=== PATIENT | male | born 1975 | race Caucasian/White ===

== ENCOUNTER 2016-07-03 09:52 | Emergency (ER) | payer MEDICAID, OTHER ==
[2016-07-03 09:52] VITALS: BMI 20.8
[2016-07-03 10:05] VITALS: TEMP 97.7
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
[2016-07-03 10:53] LABS: AUTOMATED BASOPHIL 0.1 % (0-2); AUTOMATED EOSINOPHIL 0.1 % (0-5); AUTOMATED LYMPH 7.6 % (17-44); AUTOMATED MONOCYTE 7.5 % (3-10); AUTOMATED NEUTROPHIL 84.7 % (45-76); MPV 8.2 fL (7.4-10.4)
[2016-07-03 11:04] LABS: BLOOD UREA NITROGEN 16 MG/DL (9-20); CALCIUM 9.3 MG/DL (8.4-10.2); CALCULATED OSMOLALITY 270 MOs/Kg (270-290); CHLORIDE 104 mEq/L (98-107); ETOH-MGDL < 10 mg/dL; GLUCOSE 95 MG/DL (70-99); SODIUM LEVEL 140 mEq/L (137-146)
[2016-07-03] MEDS ORDERED: HYDROmorphone 1 MG INJECTION IV ONE ×2 (11:22→12:31)
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
[2016-07-03 12:28] VITALS: BP 133/72; PULSE 70
[2016-07-03 13:10] LABS: ALL NEG? NO
[2016-07-03 13:34] LABS: MDMA* NEG (NEGATIVE); METHAMPHETAMINES NEG (NEGATIVE); OXYCODONE *POSITIVE* (NEGATIVE)
== END 2016-07-03 13:10 | disposition home or self-care (01) ==
LOC: ED 09:52
DX: S02.40EA Zygomatic fracture, right side, initial encounter for closed fracture (principal); S02.40CA Maxillary fracture, right side, initial encounter for closed fracture; S00.03XA Contusion of scalp, initial encounter; M24.411 Recurrent dislocation, right shoulder; Y09 Assault by unspecified means; J01.20 Acute ethmoidal sinusitis, unspecified; F19.10 Other psychoactive substance abuse, uncomplicated; F17.200 Nicotine dependence, unspecified, uncomplicated
CPT/HCPCS: 36415; 70450; 70486; 71010; 72125; 73030; 80048; 80307; 85025; 96374; 96376; 99283; J1170

== ENCOUNTER 2016-07-06 12:14 | Emergency (ER) | payer MEDICAID ==
[2016-07-06 12:40] VITALS: TEMP 98.5; BMI 22.6
[2016-07-06] MEDS ORDERED: IBUPROFEN 800 MG TAB PO ONE (13:10)
[2016-07-06] MEDS ORDERED: HYDROmorphone 1 MG INJECTION IM ONE (13:24)
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
[2016-07-06 15:17] VITALS: BP 121/68; PULSE 66
== END 2016-07-06 15:14 | disposition home or self-care (01) ==
LOC: EDMC 12:14
DX: S02.92XD Unspecified fracture of facial bones, subsequent encounter for fracture with routine healing (principal); Y09 Assault by unspecified means; F41.9 Anxiety disorder, unspecified; F17.200 Nicotine dependence, unspecified, uncomplicated
CPT/HCPCS: 70486; 96372; 99283; J1170; J3490